=== PATIENT | female | born 1975 | race Caucasian/White ===

== ENCOUNTER 2021-11-22 11:49 | Emergency (ER) | payer OTHER ==
[~2021-11-22 11:49] MED LIST: ONDANSETRON ODT4 MG PO; PEPCID AC20 MG PO
[2021-11-22 12:42] LABS: BASOPHIL 0.5 % (0-2); EOSINOPHIL 0.1 % (0-5); HCT 40.5 % (37.0-47.0); HGB 13.8 g/dl (12.5-16.0); MCH 29.9 pg (25.0-31.0); MCHC 34.1 g/dL (32.0-36.0); MCV 87.7 fL (78.0-100.0); MONOCYTE 5.9 % (0-12); MPV 9.1 fL (6.0-9.5); NEUTROPHIL 73.4 % (41-80); NRBC 0; PLT 298 K/uL (150-400); RBC 4.62 M/uL (4.20-5.40); RDW 12.5 % (11.5-14.0); WBC 14.3 K/uL (4.0-10.5)
[2021-11-22 13:01] LABS: ALBUMIN 3.7 g/dL (3.4-5.0); ALKALINE PHOSHATASE 92 U/L (46-116); ALT 53 U/L (14-59); AST 27 U/L (15-37); BILIRUBIN - TOTAL 0.3 mg/dL (0.2-1.0); BUN 20 mg/dL (7-18); BUN/CREAT RATIO (CALC) 28.6 RATIO; CHLORIDE 103 mmol/L (98-107); CO2 (BICARBONATE) 24 mmol/L (21-32); GLOBULIN (CALCULATION) 3.6 g/dL; GLUCOSE 130 mg/dL (74-106); POTASSIUM 4.1 mmol/L (3.5-5.1); TOTAL PROTEIN 7.3 g/dL (6.4-8.2)
[2021-11-22 13:05] LABS: C-REACTIVE PROTEIN < 0.20 mg/dL (<=0.90)
== END 2021-11-22 14:02 | disposition home or self-care (01) ==
LOC: FER 11:49
PROVIDERS: Emergency Medicine
DX: F41.1 Generalized anxiety disorder (principal); Z86.16 Personal history of COVID-19
CPT/HCPCS: 36415; 80053; 85025; 86038; 86140; 99283